=== PATIENT | female | born 1965 | race Caucasian/White ===

== ENCOUNTER → 2018-01-20 | Outpatient (CLI) | payer BC ==
[~2018-01-20] MED LIST: ALLI60 MG PO; CALCIFEROL50000 IU PO; CEPHALEXIN500 M1 PO; FISH OIL CONC1000 MG PO; GLUCOSAMINE500 M2 PO; IBUPAIN-200200 MG PO; LEVOTHYROXINE0.1 MG PO; LEVOTHYROXINE0.15 MG PO; MOTRIN 800800 MG/TAB PO; MULTIPLE VITAMI1 CAP PO; PHENTERMINE15 MG PO; PHENTERMINE30 MG PO; PREMARIN0.45 MG PO; SYNTHROID0.125 MG/T PO; TOPAMAX25 M1 PO; TYLENOL 325MG325 MG PO; TYLENOL 500MG500 MG PO; VITAMIN D32000 IU PO; levothyroxine PO
== END ==
LOC: MC.RAD 12:57
DX: Z12.31 Encounter for screening mammogram for malignant neoplasm of breast (principal)

== ENCOUNTER 2019-07-14 00:33 | Inpatient (IN) | payer OTHER ==
[2019-07-14] VITALS (160 sets, daily range): BP systolic 107–127; BP diastolic 82–92; PULSE 54–114; TEMP 97.8–98.7; O2SAT 85–100
[~2019-07-14] VITALS: Ht 172.7 cm; Wt 130.0 kg
[2019-07-14 01:00] LABS: BASO # 0.1 (0.0-0.2); BASO % 0.5 % (0.0-2.0); EOS # 0.2 (0.0-0.7); EOS % 2.2 % (0-4.0); GRAN # 7.2 (1.4-6.5); GRAN % 65.4 % (42.2-75.2); HEMATOCRIT 43.2 % (37.0-47.0); LYMPH # 2.6 (1.2-3.4); LYMPH % 23.8 % (20.0-51.0); MEAN CELL VOLUME 86 fl (80.0-100.0); MEAN CORPUSCULAR HEMOGLOBIN 28 pg (27.0-31.0); MEAN CORPUSCULAR HGB CONC 32 g/dl (33.0-37.0); MEAN PLATELET VOLUME 9.8 fl (7.4-10.4); MONO # 0.9 (0.1-0.6); MONO % 7.9 % (1.7-9.3); PLATELET COUNT 277 K/mm3 (130-400); RED BLOOD COUNT 5.05 M/mm3 (4.10-5.30); REDCELL DISTRIBUTION WIDTH-CV 14.3 % (11.5-14.5)
[2019-07-14 01:08] LABS: INR 0.9 (0.8-3.0); PROTHROMBIN TIME 10.5 SECONDS (9.7-12.8)
[2019-07-14 01:10] LABS: ALANINE AMINOTRANSFERASE 21 U/L (4-34); ALBUMIN 4.2 gm/dL (3.5-5.0); ALKALINE PHOSPHATASE 129 U/L (50-136); ANION GAP 8 mmol/L (7-16); AST,SGOT 19 U/L (15-37); BILIRUBIN,TOTAL 0.6 mg/dL (0.0-1.0); BLOOD UREA NITROGEN 28 mg/dL (7-17); CALCIUM 9.4 mg/dL (8.4-10.2); CARBON DIOXIDE 26 mmol/L (22-30); CHLORIDE 105 mmol/L (98-107); CREATININE, serum 0.83 (0.52-1.25); GLUCOSE 145 mg/dL (74-106); POTASSIUM 4.1 mmol/L (3.4-5.0); SODIUM 138 mmol/L (137-145); TOTAL PROTEIN 7.7 gm/dL (6.4-8.2)
[2019-07-14 01:29] LABS: TROPONIN-I < 0.012 ng/mL (0.000-0.035)
[2019-07-14] MEDS ORDERED: CARDIZEM CD 18180 MG PO (01:54)
--- NOTE | 2019-07-14 04:30 | NUR ---
Assessment complete; patient denies any shortness of breath, dizziness or pain. Able to ambulate with standby assist only to toilet. BP stable at this time on cardizem drip.
[2019-07-14] MEDS ORDERED: SYNTHROID0.137 MG PO (04:33)
[2019-07-14] MEDS ORDERED: MOTRIN 200200 MG/TAB PO (04:34)
--- NOTE | 2019-07-14 07:30 | NUR ---
Report received from Missy KHANNA and care resumed.
--- NOTE | 2019-07-14 09:00 | NUR ---
MAYTE met with the patient to discuss discharge plan. The patient lives in [place] with her life partner, Marci John (ph#[phone]). She reports independence with ADLs and does not have any DME. The patient's PCP is Dr. Abilio Meza and she receives her medications at [facility]. She reports no difficulties obtaining her meds. The patient does not have advanced directives in EMR, but she reports that she does have them completed. She states that her life partner, Marci, is her DPOA-HC. The patient plans to return home with Marci upon discharge. No additional needs at this time.
--- NOTE | 2019-07-14 09:15 | NUR ---
Dr Castaneda in to see pt at this time.
--- NOTE | 2019-07-14 10:36 | NUR ---
Dr Kern in to see pt at this time.
--- NOTE | 2019-07-14 12:01 | NUR ---
First visit from the arc welding machine operator. No needs right now.
[2019-07-14] MEDS ORDERED: TAMBOCOR 1100 MG/TAB PO (14:41)
[2019-07-14] MEDS ORDERED: XARELTO20 MG PO (14:41)
--- NOTE | 2019-07-14 15:47 | NUR ---
Pt taken out for discharge at this time.
== END 2019-07-14 15:45 | disposition home or self-care (01) | DRG 310 ==
LOC: COL.ER 00:33 → ICU 01:45
PROVIDERS: Emergency Medicine; ADMIT Student in an Organized Health Care Education/Training Program
DX: I48.0 Paroxysmal atrial fibrillation (principal); I10 Essential (primary) hypertension; E03.9 Hypothyroidism, unspecified; Z90.710 Acquired absence of both cervix and uterus; Z90.49 Acquired absence of other specified parts of digestive tract
CPT/HCPCS: J1650; J7030

== ENCOUNTER → 2020-07-13 | Outpatient (CLI) | payer OTHER ==
[~2020-07-13] MED LIST changes: +CARDIZEM CD 18180 MG PO; +MOTRIN 200200 MG/TAB PO; +SYNTHROID0.137 MG PO; +TAMBOCOR 1100 MG/TAB PO; +XARELTO20 MG PO
== END ==
LOC: MC.RAD 07:00
DX: Z12.31 Encounter for screening mammogram for malignant neoplasm of breast (principal)

== ENCOUNTER 2023-01-23 07:21 | Inpatient (IN) | payer BC ==
[~2023-01-23] VITALS: Ht 172.7 cm; Wt 112.4 kg
[~2023-01-23 07:21] MED LIST changes: +BETAPACE 80MG80 MG PO; +CRANBERRY PO; -SYNTHROID0.137 MG PO; +URITRAX47 GM PO; +VITAMIND3 5000 PO; +ZESTRIL 5MG5 MG PO; +ZYRTEC 10MG10 MG PO
--- NOTE | 2023-02-03 08:53 | NUR ---
PIPER KHANNA WITH CARDIOLOGY NOTIFIED OF ADMISSION
--- NOTE | 2023-02-03 09:54 | NUR ---
Patient admitted to unit around 0900. Patient is alert and oriented x4. Gait is steady. Patient denies pain or discomfort, denies dizziness. 20g IV started to right forearm. Med rec complete, patient states last time she took Sotalol was last night and did not take it this morning. Patient states she has been taking 40mg not 80mg which was originally in med rec. Patient currently in bed with call light in reach.
[2023-02-03 10:28] LABS: CALCIUM 9.2 mg/dL (8.4-10.2); CREATININE, serum 0.83 mg/dL (0.57-1.11); MAGNESIUM 1.8 mg/dL (1.6-2.6); POTASSIUM 4.1 mmol/L (3.5-4.5)
[2023-02-03 11:41] VITALS: BP 125/81; PULSE 58; TEMP 97.4
[2023-02-03 12:42] VITALS: BP_SYST 125
[2023-02-03 15:34] VITALS: BP 136/80; PULSE 52; TEMP 97.7
[2023-02-03 17:46] VITALS: BP_SYST 136
--- NOTE | 2023-02-03 17:50 | NUR ---
Patient continues to do well, states she already feels better after Tikosyn dose and has more energy. Patient ambulating self around room with no issues, gait steady. Son at bedside and is bringing patient dinner. HR continues to be sinus tod, but slightly higher in 50s than when admitted at 40s.
[2023-02-03 19:22] VITALS: BP 139/79; PULSE 63; TEMP 98
--- NOTE | 2023-02-03 20:00 | NUR ---
UPON SHIFT ASSESSMENT, ASHA WAS IN BEDSIDE CHAIR. SHE IS VERY AGREEABLE AND HAS A GOOD UNDERSTANDING OF HER DX. SHE DENIES CHEST PAIN AND SOA. SHE REMAINS BRADYCARDIC AT 54, BUT STATES SHE, "...STARTING TO FEEL BETTER". CALL LIGHT WITHIN REACH. OTHER VSS ARE WNL
[2023-02-03 21:05] VITALS: BP_SYST 139
[2023-02-04] VITALS (13 sets, daily range): BP systolic 112–156; BP diastolic 68–96; PULSE 52–68; TEMP 97.4–98.4
--- NOTE | 2023-02-04 05:32 | NUR ---
PATIENT SLEPT THROUGH THE NIGHT AND CURRENTLY DENIES CHEST PAIN AND SOA. SHAYY EXHIBITS A GOOD UNDERSTANDING OF HER MEDICATIONS AND CONDITION. HER TELE REMAINS NS BRADYCARDIA. LAST QTC 23:00 WAS 404, ALL OTHER VSS ARE WNL. CALL LIGHT WITHIN REACH.
--- NOTE | 2023-02-04 05:39 | NUR ---
CALL RECIEVED FROM TELE-ASHA HAD A BRIEF BRADYCARDIC EVENT IN THE LOW 40'S. SHE CURRENTLY IS 51 ON TELE AND A QUICK ASSESSMENT SHOWED ASHA TO BE ASYMPTOMATIC. SHE WAS AXO X 4 AND DENIED SOA AND CHEST PAIN.
[2023-02-04 07:18] LABS: CALCIUM 9.1 mg/dL (8.4-10.2); CREATININE, serum 0.81 mg/dL (0.57-1.11); MAGNESIUM 1.9 mg/dL (1.6-2.6); POTASSIUM 4.2 mmol/L (3.5-4.5)
--- NOTE | 2023-02-04 08:46 | NUR ---
PT SITTING IN CHAIR THIS MORNING ON ASSESSMENT. PT STATES SHE IS DOING WELL, NO COMPLAINTS. PT IS ON DAY 2 OF TIKOSYN INIATION. TELE MONITOR IN PLACE, SHOWS HEART RATE OF 56. NO COMPLAINTS OF DIZZINESS OR FEELING LIGHT HEADED. EKG ORDERED 2HRS POST ADMINISTRATION.
--- NOTE | 2023-02-04 10:23 | NUR ---
Initial visit; Patient experiencing her second medication trial and thanked [employer] for looking in on her. Patient was receptive to [employer]'s request to keep her in [employer]'s prayers.
--- NOTE | 2023-02-04 13:20 | NUR ---
Rn Office met with patient to discuss discharge planning. Patient lives in [place] with her spouse, Marci (ph#[phone]) who is at bedside. Patient sees Dr. Meza for primary care and obtains medications from [facility] with no difficulties. Patient does not use any DME and is independent with ADLS. Patient reported Marci is her DPOA-HC. Discharge Plan: Home
--- NOTE | 2023-02-04 20:00 | NUR ---
UPON SHIFT ASSESSMENT, SHAYY WAS IN BEDSIDE CHAIR WATCHING TV. SHE REMAINS PLEASANT C/O OF NO CHEST PAIN OR SOA. SHE ANTICIPATES DISCHARGE TOMMORROW AND TELE IS NS BRADYCARDIA, VSS ARE WNL, CALL LIGHT WITHIN REACH.
[2023-02-05] VITALS (7 sets, daily range): BP systolic 126–135; BP diastolic 76–85; PULSE 52–65; TEMP 97.7–97.8
--- NOTE | 2023-02-05 05:38 | NUR ---
SHAYY SLEPT THROUGH THE NIGHT. TELE ALERTED TO BRADYCARDIA IN THE 45'S AND ASSESSMENT REVEALED SHAYY TO BE ASYMPTOMATIC AND A REPEAT OCCURENCE FROM THE NIGHT BEFORE, SHE TENDS TO GO [place] WHILE ASLEEP. SHE DENIES CHEST PAIN OR SOA. SHE EAGERLY AWAITS HER DISCHARGE TONIGHT PENDING 6TH DOSE OF TIKOSYN AND NORMAL EKG.
[2023-02-05 06:16] LABS: CALCIUM 9.2 mg/dL (8.4-10.2); CREATININE, serum 0.78 mg/dL (0.57-1.11); MAGNESIUM 1.9 mg/dL (1.6-2.6); POTASSIUM 4.2 mmol/L (3.5-4.5)
--- NOTE | 2023-02-05 10:57 | NUR ---
PATIENT IS PLEASANT AND SITTING UP IN RECLINER. AXOX4. VSS. ASSESSMENT COMPLETE. NO ISSUES. PATIENT STATES SHE IS READY TO GO HOME, AND IS LOOKING FORWARD TO HER BED. SET TO DISCHARGE THIS EVENING LONG NO ISSUES ARISE.
[2023-02-05] MEDS ORDERED: TIKOSYN0.5 MG PO (14:32)
--- NOTE | 2023-02-05 15:23 | NUR ---
patient received discharge instructions;follow up appointments, new medications, and education. acknowleged understanding. rfa iv discontinued. patient is pleasant and ready to leave.
--- NOTE | 2023-02-05 16:00 | NUR ---
PATIENT DISCHARGED INDEPENDENTLY. NO PROBLEMS. RIDE PICKED THEM UP.
== END 2023-02-05 16:00 | disposition home or self-care (01) | DRG 310 ==
LOC: MEDICAL 02-03 07:20
PROVIDERS: ADMIT Internal Medicine Cardiovascular Disease
DX: I48.91 Unspecified atrial fibrillation (principal); I10 Essential (primary) hypertension; Z90.710 Acquired absence of both cervix and uterus; Z90.49 Acquired absence of other specified parts of digestive tract; Z79.899 Other long term (current) drug therapy; Z79.890 Hormone replacement therapy; Z79.01 Long term (current) use of anticoagulants; Z88.5 Allergy status to narcotic agent

== ENCOUNTER → 2023-04-09 | Outpatient (CLI) | payer BC ==
[~2023-04-09] MED LIST changes: +TIKOSYN0.5 MG PO
== END ==
LOC: MC.RAD 08:30
DX: Z12.31 Encounter for screening mammogram for malignant neoplasm of breast (principal)

== ENCOUNTER 2023-09-25 09:22 | Emergency (ER) | payer BC ==
[~2023-09-25] VITALS: Ht 172.7 cm; Wt 118.2 kg
[2023-09-25 09:36] VITALS: TEMP 99.7
[2023-09-25] MEDS ORDERED: LR 1,000 ML IV ONE (10:00)
[2023-09-25 10:26] LABS: BASO # 0.1 K/mm3 (0.0-0.2); BASO % 0.4 % (0.0-2.0); EOS % 0.2 % (0.0-4.0); GRAN # 13.6 K/mm3 (1.4-6.5); GRAN % 85.2 % (42.2-75.2); HEMATOCRIT 45.4 % (37.0-47.0); HEMOGLOBIN 14.5 g/dl (12.5-16.0); LYMPH # 1.5 K/mm3 (1.2-3.4); LYMPH % 9.4 % (20.0-51.0); MEAN CELL VOLUME 87 fl (80.0-100.0); MEAN CORPUSCULAR HEMOGLOBIN 28 pg (27-31); MEAN CORPUSCULAR HGB CONC 32 g/dl (33.0-37.0); MONO # 0.7 K/mm3 (0.1-0.6); MONO % 4.5 % (1.7-9.3); PLATELET COUNT 312 K/mm3 (130-400); RED BLOOD COUNT 5.21 M/mm3 (4.10-5.30); REDCELL DISTRIBUTION WIDTH-CV 15.4 % (11.5-14.5)
[2023-09-25 11:01] LABS: ALBUMIN 3.9 g/dL (3.4-4.8); BILIRUBIN,TOTAL 0.8 mg/dL (0.2-1.2); CALCIUM 9.3 mg/dL (8.4-10.2); CREATININE, serum 0.91 mg/dL (0.57-1.11); POTASSIUM 4.2 mEq/L (3.5-4.5)
[2023-09-25 11:35] VITALS: BP 155/108; PULSE 86
== END 2023-09-25 11:35 | disposition home or self-care (01) ==
LOC: COL.ER 09:22
PROVIDERS: Emergency Medicine
DX: K62.5 Hemorrhage of anus and rectum (principal); Z90.49 Acquired absence of other specified parts of digestive tract
CPT/HCPCS: J7120

== ENCOUNTER 2023-11-17 05:29 | Emergency (ER) | payer BC ==
[~2023-11-17] VITALS: Ht 172.7 cm; Wt 90.9 kg
[2023-11-17 05:35] VITALS: TEMP 98
[2023-11-17] MEDS ORDERED: Lisinopril 10 MG TAB PO ONE (06:45)
[2023-11-17] MEDS ORDERED: Lisinopril 5 MG TAB PO ONE (06:45)
[2023-11-17 06:56] VITALS: BP 128/89; PULSE 93
[2023-11-17] MEDS ORDERED: TIKOSYN0.5 MG PO (19:05)
[2023-11-17] MEDS ORDERED: METHENMAND1 PO (19:06)
[2023-11-17] MEDS ORDERED: PROTONIX 40MG T40 MG PO (19:06)
[2023-11-17] MEDS ORDERED: XARELTO20 MG PO (19:07)
[2023-11-17] MEDS ORDERED: BIOTIN5000 MCG PO (19:08)
[2023-11-17] MEDS ORDERED: TYLENOL 8 HR PO (19:08)
[2023-11-17] MEDS ORDERED: MAGNESIUM GLYC100 MG PO (19:10)
[2023-11-17] MEDS ORDERED: VITAMIN D31000 I1 PO (19:11)
[2023-11-17] MEDS ORDERED: D-MANNOSE PO (19:13)
[2023-11-17] MEDS ORDERED: OSTEO-BI-FLEX 21 TAB PO (19:14)
== END 2023-11-17 07:05 | disposition home or self-care (01) ==
LOC: COL.ER 05:29
DX: R04.0 Epistaxis (principal); I48.91 Unspecified atrial fibrillation; Z79.01 Long term (current) use of anticoagulants

== ENCOUNTER 2023-11-17 16:18 | Observation (INO) | payer BC ==
[~2023-11-17] VITALS: Ht 172.7 cm; Wt 115.0 kg
[2023-11-17] MEDS ORDERED: hydrALAZINE 20 MG/ML 1 ML VIAL IV ONE (18:00)
[2023-11-17 18:08] LABS: BASO # 0.1 K/mm3 (0.0-0.2); BASO % 0.5 % (0.0-2.0); EOS # 0.1 K/mm3 (0.0-0.7); EOS % 1.2 % (0.0-4.0); GRAN # 9.2 K/mm3 (1.4-6.5); GRAN % 78.4 % (42.2-75.2); HEMATOCRIT 41.7 % (37.0-47.0); HEMOGLOBIN 13.5 g/dl (12.5-16.0); LYMPH # 1.7 K/mm3 (1.2-3.4); LYMPH % 14.4 % (20.0-51.0); MEAN CELL VOLUME 90 fl (80.0-100.0); MEAN CORPUSCULAR HEMOGLOBIN 29 pg (27-31); MEAN CORPUSCULAR HGB CONC 32 g/dl (33.0-37.0); MEAN PLATELET VOLUME 9.8 fl (7.4-10.4); MONO # 0.6 K/mm3 (0.1-0.6); MONO % 5.2 % (1.7-9.3); PLATELET COUNT 280 K/mm3 (130-400); RED BLOOD COUNT 4.63 M/mm3 (4.10-5.30); REDCELL DISTRIBUTION WIDTH-CV 14.6 % (11.5-14.5)
[2023-11-17 18:21] LABS: ALBUMIN 4.3 g/dL (3.4-4.8); BILIRUBIN,TOTAL 0.6 mg/dL (0.2-1.2); CALCIUM 9.6 mg/dL (8.4-10.2); CREATININE, serum 0.89 mg/dL (0.57-1.11); POTASSIUM 3.8 mEq/L (3.5-4.5); TOTAL PROTEIN 7.6 g/dl (6.2-8.1)
[2023-11-17 18:28] LABS: TROPONIN-I 0.068 ng/mL (0.00-0.033)
[2023-11-17] MEDS ORDERED: TIKOSYN0.5 MG PO (19:05)
[2023-11-17] MEDS ORDERED: METHENMAND1 PO (19:06)
[2023-11-17] MEDS ORDERED: PROTONIX 40MG T40 MG PO (19:06)
[2023-11-17] MEDS ORDERED: XARELTO20 MG PO (19:07)
[2023-11-17] MEDS ORDERED: TYLENOL 8 HR PO (19:08)
[2023-11-17] MEDS ORDERED: BIOTIN5000 MCG PO (19:08)
[2023-11-17] MEDS ORDERED: MAGNESIUM GLYC100 MG PO (19:10)
[2023-11-17] MEDS ORDERED: VITAMIN D31000 I1 PO (19:11)
[2023-11-17] MEDS ORDERED: D-MANNOSE PO (19:13)
[2023-11-17] MEDS ORDERED: OSTEO-BI-FLEX 21 TAB PO (19:14)
[2023-11-17] MEDS ORDERED: Acetaminophen 500 MG TAB PO ONE (19:30)
[2023-11-17] MEDS ORDERED: Acetaminophen 325 MG TAB PO PRN (21:45)
[2023-11-17] MEDS ORDERED: Ondansetron 4 MG/2 ML VIAL IV PRN ×2 (21:45)
[2023-11-17] MEDS ORDERED: hydrALAZINE 20 MG/ML 1 ML VIAL IV PRN (21:45)
--- NOTE | 2023-11-17 22:10 | NUR ---
PT TO FLOOR AT THIS TIME VIA WHEELCHAIR WITH DERIK (SPOUSE) AT BEDSIDE.
[2023-11-17 22:15] VITALS: BP 157/95; PULSE 101; TEMP 98
--- NOTE | 2023-11-17 23:40 | NUR ---
THIS NURSE NOTIFIED ANIL LOUISE OF TIKOSYN AND PROTONIX MEDS EVENING DOSE BEING POSSIBLY MISSED. PROVIDER TO RETIME MEDS TO BE GIVEN TONIGHT.
--- NOTE | 2023-11-17 23:44 | NUR ---
PT C/O 8/10 FACIAL PAIN THAT IS ESPECIALLY WORSE ON THE RIGHT SIDE. PRN TYLENOL OFFERED AND GIVEN. ROOM LIGHTS DIMMED AND PT TURNED TO RIGHT SIDE. SHIFT ASSESSMENT COMPLETE AND DOCUMENTED. TELEMETRY AND HOLTER MONITOR IN PLACE. RHINO ROCKET IN R NARE WITH TAPE APPLIED TO R CHEEK. ALL NEEDS MET AT THIS TIME. CALL LIGHT WITHIN REACH.
[2023-11-17] MEDS ORDERED: Dofetilide 250 MCG CAP PO SCH (23:45)
[2023-11-18] VITALS (9 sets, daily range): BP systolic 101–169; BP diastolic 70–99; PULSE 88–100; TEMP 96.9–98.4
--- NOTE | 2023-11-18 01:02 | NUR ---
NOTIFIED PROVIDER OF CRITICAL TROPONIN RESULT. WILL CONTINUE TO MONITOR.
--- NOTE | 2023-11-18 06:32 | NUR ---
PT REPORTS LESS PAIN AT 4/10 THAT IS WORSE WHEN MOVING. SCHEDULED MEDS GIVEN PER eMAR. ALL NEEDS MET AT THIS TIME. NO FURTHER CONCERNS.
--- NOTE | 2023-11-18 06:38 | NUR ---
PHONE NUMBER LEFT WITH [facility].
--- NOTE | 2023-11-18 06:47 | NUR ---
[facility] NOTIFIED OF CONSULT. [facility] ORDER ECHO TODAY AND NPO STATUS TO START IMMEDIATELY.
--- NOTE | 2023-11-18 07:00 | NUR ---
PT RESTING IN BED. PT IS ON RA. PT IS SR ON TELE. PT HAS A RHINO ROCKET TO RIGHT NARE. PT HAS A HALTER MONITOR ON. PT IS AXOX4. PT HAS CALL LIGHT AND INSTRUCTED TO CALL WITH ALL NEEDS.
[2023-11-18 07:15] LABS: BASO # 0.1 K/mm3 (0.0-0.2); BASO % 0.5 % (0.0-2.0); EOS # 0.1 K/mm3 (0.0-0.7); EOS % 0.5 % (0.0-4.0); GRAN % 77.4 % (42.2-75.2); HEMATOCRIT 39.6 % (37.0-47.0); HEMOGLOBIN 13.2 g/dl (12.5-16.0); LYMPH # 1.9 K/mm3 (1.2-3.4); LYMPH % 13.7 % (20.0-51.0); MEAN CELL VOLUME 87 fl (80.0-100.0); MEAN CORPUSCULAR HEMOGLOBIN 29 pg (27-31); MEAN CORPUSCULAR HGB CONC 33 g/dl (33.0-37.0); MEAN PLATELET VOLUME 10.2 fl (7.4-10.4); MONO # 1.1 K/mm3 (0.1-0.6); MONO % 7.5 % (1.7-9.3); PLATELET COUNT 272 K/mm3 (130-400); RED BLOOD COUNT 4.55 M/mm3 (4.10-5.30); REDCELL DISTRIBUTION WIDTH-CV 14.5 % (11.5-14.5)
[2023-11-18 07:40] LABS: CALCIUM 9.3 mg/dL (8.4-10.2); CREATININE, serum 0.82 mg/dL (0.57-1.11); POTASSIUM 3.7 mEq/L (3.5-4.5)
--- NOTE | 2023-11-18 08:37 | NUR ---
MESSAGE LEFT AT ENT OFFICE REGARDING CONSULT.
[2023-11-18] MEDS ORDERED: Cetirizine 10 MG TAB PO SCH (09:00)
[2023-11-18] MEDS ORDERED: Dofetilide 250 MCG CAP PO SCH (09:00)
[2023-11-18] MEDS ORDERED: Lisinopril 10 MG TAB PO SCH (09:00)
[2023-11-18] MEDS ORDERED: Sennosides/Docusate 8.6-50 MG TAB PO SCH (09:00)
[2023-11-18] MEDS ORDERED: Cholecalciferol (Vit D3) 1000 Units TAB PO SCH (09:00)
--- NOTE | 2023-11-18 09:42 | NUR ---
MAYTE met with patient and to complete initial assessment for discharge planning. Patient verified that they live in [place], she has given DPOA to her Marci John ([phone]). Patient sees Dr. Barron Ford as her PCP and uses [facility] pharmacy without difficulty. Patient denies having any DME and states she is independent with all activities. Patient is covered by [facility] insurance. Plan is for patient to return home at discharge. Discharge plan: Home
[2023-11-18] MEDS ORDERED: amLODIPine 10 MG TAB PO SCH (10:45)
--- NOTE | 2023-11-18 12:43 | NUR ---
1210-SPOKE WITH REGARDING CONSULT. RHINO ROCKET STILL IN RIGHT NARE. NO DRAINAGE LEAKING AROUND. PT STATES PAIN AND PRESSURE ARE MUCH BETTER. STATES TO LEAVE RHINO ROCKET IN UNTIL FRIDAY. IF PT DISCHARGES PRIOR HAVE HER KEEP HER ALREADY SCHEDULE APPOINTMENT. IF SHE IS STILL INPATIENT, SHE () CAN COME ON FRIDAY TO REMOVE.
--- NOTE | 2023-11-18 14:21 | NUR ---
1405-SPOKE WITH 'S RN TO CLARIFY FOLLOW UP. PT HAS A APPOINTMENT ALREADY SCHEDULED FOR 11/19/23 0850 BUT EARLIER STATED TO REMOVE THE PACKING 11/20/23. HER RN STATED THEY WOULD MOVE HER APPOINTMENT TO 11/20/23 0850. PT UPDATED ON THE ABOVE.
[2023-11-18] MEDS ORDERED: Amoxicillin/Clavulanate K+ 875/125 MG TAB PO SCH (17:00)
--- NOTE | 2023-11-18 19:20 | NUR ---
PATIENT RESTING IN BED WITH TV ON WITH NO FAMILY PRESENT WITH NO ACUTE DISTRESS NOTED. PATIENT ON ROOM AIR. RHINO ROCKET INTACT IN RIGHT NARES WITH NO COMPLICATIONS NOTED. INT TO RIGHT AC INTACT. TELEMETRY INTACT. BEDSIDE SHIFT REPORT COMPLETED WITH PAUL AT THIS TIME. PATIENT DENIES ANY NEEDS. BED IN LOW POSITION WITH WHEELS LOCKED WITH RAILS UP X3 AND CALL LIGHT WITHIN REACH.
--- NOTE | 2023-11-18 21:20 | NUR ---
PATIENT RESTING IN BED WITH TV ON WITH AT BEDSIDE WITH NO ACUTE DISTRESS NOTED. PATIENT ON ROOM AIR. INT TO RIGHT AC INTACT WITH NO COMPLICATIONS NOTED. TELEMETRY INTACT. RHINO ROCKET INTACT IN RIGHT NARES. ASSESSMENT AND MEDICATION ADMINISTRATION COMPLETED AT THIS TIME. PATIENT REQUESTED TAPE ON RHINO ROCKET BED CHAEGED AND IT WAS CHANGED TO PAPER TAPE. PATIENT TOELRATED WELL. PATIENT DENIES ANY OTHER NEEDS. BED IN LOW POSITION WITH WHEELS LOCKED WITH RAILS UP X3 AND CALL LIGHT WTIHIN REACH.
[2023-11-19] VITALS (7 sets, daily range): BP systolic 99–113; BP diastolic 72–77; PULSE 88–100; TEMP 98–98.3
[2023-11-19] MEDS ORDERED: Heparin 5,000 UNITS/ML 1 ML VIAL IV PRN (03:30)
[2023-11-19] MEDS ORDERED: Heparin 5,000 UNITS/ML 1 ML VIAL IV ONE (03:30)
[2023-11-19] MEDS ORDERED: cefTRIAXone 1 G in Water For Injection,Sterile 10 ML IV SCH (03:30)
[2023-11-19] MEDS ORDERED: Heparin/D5W 250 ML IV SCH (03:30)
[2023-11-19 06:19] LABS: BASO # 0.1 K/mm3 (0.0-0.2); BASO % 0.5 % (0.0-2.0); EOS # 0.1 K/mm3 (0.0-0.7); EOS % 0.9 % (0.0-4.0); GRAN # 9.7 K/mm3 (1.4-6.5); HEMATOCRIT 38.9 % (37.0-47.0); HEMOGLOBIN 12.7 g/dl (12.5-16.0); LYMPH # 1.9 K/mm3 (1.2-3.4); LYMPH % 14.4 % (20.0-51.0); MEAN CELL VOLUME 89 fl (80.0-100.0); MEAN CORPUSCULAR HEMOGLOBIN 29 pg (27-31); MEAN CORPUSCULAR HGB CONC 33 g/dl (33.0-37.0); MEAN PLATELET VOLUME 10.1 fl (7.4-10.4); MONO # 1.1 K/mm3 (0.1-0.6); MONO % 8.8 % (1.7-9.3); PLATELET COUNT 249 K/mm3 (130-400); RED BLOOD COUNT 4.36 M/mm3 (4.10-5.30); REDCELL DISTRIBUTION WIDTH-CV 14.6 % (11.5-14.5)
[2023-11-19 06:38] LABS: CALCIUM 9.3 mg/dL (8.4-10.2); CREATININE, serum 0.84 mg/dL (0.57-1.11); POTASSIUM 3.9 mEq/L (3.5-4.5)
[2023-11-19] MEDS ORDERED: NORVASC 10MG10 MG PO (10:55)
[2023-11-19] MEDS ORDERED: AMOXICILLIN 8751 TAB PO (10:56)
--- NOTE | 2023-11-19 11:40 | NUR ---
Patient sitting up in chair, alert and oriented x 4, VSS. Some soft BP, SBP 99. Refuses to take her amloidpine. Reported to [place]. Assessment completed, meds given. Rhino Rocket in place, to be removed tomorrow. No further needs at this time. Call light within reach.
--- NOTE | 2023-11-19 12:12 | NUR ---
Patient received discharge information, all questions ansered. IV access and telemetry were discontinued. Pt waiting for her right who will come in 1 hr.
== END 2023-11-19 12:15 | disposition home or self-care (01) ==
LOC: COL.ER 16:18 → MEDICAL 20:09
PROVIDERS: Nurse Practitioner Primary Care; Physician Assistant; ADMIT Internal Medicine
DX: I21.4 Non-ST elevation (NSTEMI) myocardial infarction (principal); I16.0 Hypertensive urgency; I48.91 Unspecified atrial fibrillation; K21.9 Gastro-esophageal reflux disease without esophagitis; R79.89 Other specified abnormal findings of blood chemistry; R04.0 Epistaxis; E03.9 Hypothyroidism, unspecified; E66.9 Obesity, unspecified; Z79.01 Long term (current) use of anticoagulants; Z79.890 Hormone replacement therapy
CPT/HCPCS: G0378; J0360